=== PATIENT | male | born 1945 | race Caucasian/White ===

== ENCOUNTER → 2016-03-20 | Day surgery (SDC) | payer OTHER ==
[~2016-03-20] MED LIST: BUPIVACAINE HCL PF 0.75% 30 ML VIAL ONE; EPINEPHrine HCL (1:1000) 30 MG/30 ML VIAL ONE; LACTATED RINGER'S 1000 ML INJ 1,000 ML ONE; LIDOCAINE 1.5%/EPINEPHrine 1:200,000 PF SOLN 30 ML AMP ONE; MIDAZOLAM HCL 2 MG/2 ML VIAL ONE; PROPOFOL 200 MG/20 ML AMP IV ONE; ceFAZolin 2 GM PREMIX 50 ML ONE
--- NOTE | 2016-03-21 21:42 | MP ---
cc: DAVIN ROSARIO M.D. DATE OF SURGERY: 03/20/2016 PREOPERATIVE DIAGNOSIS: Right shoulder full thickness rotator cuff tear, interosseus glenoid cyst. POSTOPERATIVE DIAGNOSIS: 1. Full thickness rotator cuff tear. 2. Impingement syndrome. 3. 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 4. Posterior and superior labral fraying. OPERATION: 1. Right shoulder arthroscopic rotator cuff repair using Arthrex SpeedBridge suture anchors. 2. Right shoulder debridement, posterior labrum, superior labrum. 3. Right shoulder arthroscopic subacromial decompression. ANESTHESIA: Interscalene block and general SURGEON Davin Rosario MD [employer]INE[employer] SURGEON NOVA Barros. ESTIMATED BLOOD LOSS: Minimal SPECIMEN None COMPLICATIONS None known. INDICATION Favian Peña is a 70 year-old male with debilitating right shoulder pain and MRI findings of full thickness rotator cuff tear. He has additional findings of interosseus cyst on the glenoid and some arthritic change of the glenohumeral joint. Risks and benefits were thoroughly discussed and a detailed informed consent has been obtained for arthroscopic surgery. It should be noted that the surgical first assistant, NOVA Barros, is an advanced registered nurse practitioner who specializes in orthopedic surgery. His skill set was medically necessary for the performance of the operation as surgical first assistant. PROCEDURE The patient is given interscalene block in the preop holding area and brought in the operating room, placed under general anesthetic. He is turned to the lateral decubitus position with the right shoulder up, axillary roll in place. The right shoulder is draped and prepped in usual sterile fashion. IV antibiotics were given. Time-out was completed, bony landmarks were drawn out. Posterior portal was made. Blunt trocar used to introduce the cannula. The shoulder insufflated with saline. We looked upwards and saw full thickness rotator cuff tear. We looked downward and saw a posterior labral tear and superior labral tear, and significant synovitis. We made our lateral base portal and brought a shaver in to debride the posterior labrum and superior labrum. Biceps tendon appeared intact. Photographs taken from this location. Also there was significant articular cartilage deficit on the anterior aspect of the humeral head and this was photographed. The glenoid surface did not show an obvious location of where the subchondral cyst was located and no significant arthritic change was seen on that side of the joint. We then came into the subacromial space and identified the anterior acromial spur and performed anterior acromionectomy, smoothing and flattening. The anterior acromion and performing bursectomy and then taking follow up photograph here. We then proceeded with preparation of the rotator cuff tear and debridement of unstable tissue. There was a delamination of the cuff on top as well, and we did [id number] stitches both posteriorly and anteriorly over the rotator interval and then did the SpeedBridge technique on the articular margin with the anchors and then passed the FiberTape in a typical crisscross technique to the lateral based anchors. Excellent reproduction of anatomic alignment. Follow-up photograph showed the final result. Hemostasis was excellent. The arthroscopic equipment was removed, closed with absorbable sutures. Steri-Strips applied. Sterile dressing applied. The patient was awoken and returned to the recovery room in stable condition. MD LAYO Lopez/AZAM /11:51 AM /9:30 PM
== END | disposition home or self-care (01) ==
LOC: ESDC 07:43
PROVIDERS: ATTEND Orthopaedic Surgery Sports Medicine
DX: M75.121 Complete rotator cuff tear or rupture of right shoulder, not specified as traumatic (principal); M75.41 Impingement syndrome of right shoulder; M19.011 Primary osteoarthritis, right shoulder; M67.411 Ganglion, right shoulder
CPT/HCPCS: 01630; 01991; 29823; 29826; 29827; 64417; C1713; J0171; J0690; J2250; J7120